=== PATIENT | female | born 1950 | race African-American/Black ===

== ENCOUNTER → 2016-10-09 19:30 | Emergency (ER) | payer OTHER | END | disposition home or self-care (01) | LOC: ER 19:30 | PROC: 2W3FX1Z Immobilization of Left Hand using Splint (ICD-10-PCS; principal; 2016-10-09) | DX: S62.617A Displaced fracture of proximal phalanx of left little finger, initial encounter for closed fracture (principal); I10 Essential (primary) hypertension; E11.9 Type 2 diabetes mellitus without complications; F17.200 Nicotine dependence, unspecified, uncomplicated; W19.XXXA Unspecified fall, initial encounter | CPT/HCPCS: 73130-LT; 99284 ==